=== PATIENT | male | born 1950 | race Caucasian/White ===

== ENCOUNTER → 2017-07-24 | Outpatient (CLI) | payer BC ==
--- NOTE | 2017-07-24 10:07 | PCVCIMAG ---
EXAM: ARTERIAL DUPLEX RIGHT UPPER EXTREMITY INDICATION: Decreased pulses right arm. Arm discomfort. FINDINGS: Right arm: Normal triphasic waveforms in the innominate artery, subclavian artery, brachial artery, radial artery, and ulnar artery. No evidence of flow-limiting stenosis identified in the right arm. Note is made systolic blood pressure is 22 mmHg less in the right arm compared to the left arm. Please correlate clinically. IMPRESSION: No evidence of flow-limiting arterial stenosis in the right upper extremity is identified. LOC:[id number]
--- NOTE | 2017-07-24 12:25 | PCVCIMAG ---
APPROVED REPORT Laterality: Bilateral Patient Location: Out-Patient Indications Stenosis Risk Factors Hypertension: Hyperlipidemia Doppler Spectral Velocity Analysis PSV / EDVPSV / EDV ECA (R) 116 / 13 cm/sECA (L) 95 / 11 cm/s dICA (R) 73 / 29 cm/sdICA (L) 47 / 17 cm/s Lilliana (R) 84 / 29 cm/smICA (L) 68 / 26 cm/s pICA (R) 60 / 22 cm/spICA (L) 59 / 19 cm/s Bulb (R) 56 / 13 cm/sBulb (L) 36 / 15 cm/s dCCA (R) 59 / 12 cm/sdCCA (L) 82 / 24 cm/s mCCA (R) 74 / 16 cm/smCCA (L) 91 / 19 cm/s Vert (R) 30 / 6 cm/sVert (L) 42 / 14 cm/s ICA/CCA 0.83 ICA/CCA 1.13 Basic Measurements Blood Pressure: Pulses: Right Left RightLeft Brachial(Sitting) 120/21zlDi353/76mmHgTemporal Real Time B-Mode Imaging Vert. (R)AntegradeVert. (L)Antegrade Findings The right carotid bulb has moderate calcified plaque. The right proximal internal carotid artery shows <40% stenosis. The right common carotid artery shows no significant stenosis. The right external carotid artery shows no significant stenosis. The left carotid bulb has mild plaque. The left proximal internal carotid artery shows no significant stenosis. The left common carotid artery shows no significant stenosis. The left external carotid artery shows no significant stenosis. Conclusion 1. Right internal carotid artery stenosis (<40%) 2. Left internal carotid artery plaquing 3. Antegrade vertebral flow
--- NOTE | 2017-07-24 12:29 | PCVCIMAG ---
APPROVED REPORT Patient Location: Echo lab Room #: Stress Nurse: Susan Curry RN TREADMILL STRESS TEST; INDICATIONS; CAD, CABG, HYPERTENSION, DIABETES, HYPERLIPIDEMIA. THE PATIENT EXERCISED ACCORDING TO THE ALISHA PROTOCOL FOR 7:28 MINS ACHIEVING A WORK LEVEL OF MAX METS 10.10. THE RESTING HEART RATE OF 74 BPM LEAH TO A MAXIMAL HEART RATE OF 148 BPM. THIS VALUE REPRESENTS 96% OF THE MAXIMAL AGE PREDICTED HEART RATE; THE RESTING BLOOD PRESSURE OF 160/80mmhg. LEAH TO A MAXIMUM BLOOD PRESSURE OF 200/84mmhg. THE EXERCISE TEST WAS STOPPED DUE TO MAXIMAL EFFORT. ECG: NORMAL SINUS, NORMAL TRACING. STRESS ECG: NO DIAGNOSTIC ISCHEMIC ELECTROCARDIOGRAPHIC CHANGES. RARE, ISOLATED PVC'S Conclusion 1. MAXIMAL TREADMILL STRESS NEGATIVE FOR ISCHEMIA 2. NO SUBJECTIVE SIGNS OF ISCHEMIA, NO DIAGNOSTIC ISCHEMIC ELECTROCARDIOGRAPHIC CHANGES 3. THE STUDY WAS ASSOCIATED WITH GOOD EXERCISE CAPACITY
== END | disposition home or self-care (01) ==
LOC: PCVCIMAG 08:41
PROVIDERS: ATTEND Internal Medicine
DX: I25.10 Atherosclerotic heart disease of native coronary artery without angina pectoris (principal); I10 Essential (primary) hypertension; I65.23 Occlusion and stenosis of bilateral carotid arteries; E78.5 Hyperlipidemia, unspecified; E11.9 Type 2 diabetes mellitus without complications; Z95.1 Presence of aortocoronary bypass graft; Z87.891 Personal history of nicotine dependence; Z79.82 Long term (current) use of aspirin; Z79.899 Other long term (current) drug therapy
CPT/HCPCS: 80061; 93005; 93017; 93880; 93931; G0463

== ENCOUNTER → 2018-07-23 | Outpatient (CLI) | payer BC ==
--- NOTE | 2018-07-23 09:54 | PCVCIMAG ---
APPROVED REPORT Indications Stenosis Risk Factors Hypertension: Hyperlipidemia Diabetes CAD, Doppler Spectral Velocity Analysis PSV / EDVPSV / EDV ECA (R) 100 / 9 cm/sECA (L) 78 / 10 cm/s dICA (R) 83 / 33 cm/sdICA (L) 55 / 26 cm/s Lilliana (R) 52 / 21 cm/smICA (L) 82 / 34 cm/s pICA (R) 60 / 22 cm/spICA (L) 62 / 22 cm/s Bulb (R) 60 / 14 cm/sBulb (L) 49 / 12 cm/s dCCA (R) 66 / 13 cm/sdCCA (L) 63 / 19 cm/s mCCA (R) 81 / 14 cm/smCCA (L) 92 / 23 cm/s Vert (R) 38 / 8 cm/sVert (L) 43 / 17 cm/s ICA/CCA 1.02ICA/CCA 0.89 Basic Measurements Blood Pressure: Pulses: Right Left RightLeft Brachial(Sitting) 138/44fuJh292/84mmHgTemporal Real Time B-Mode Imaging Vert. (R)AntegradeVert. (L)Antegrade Findings The right carotid bulb has mild calcified plaque. The right proximal internal carotid artery shows <40% stenosis. The right common carotid artery shows no significant stenosis. The right external carotid artery shows no significant stenosis. The left carotid bulb has mild calcified plaque. The left proximal internal carotid artery shows <40% stenosis. The left common carotid artery shows no significant stenosis. The left external carotid artery shows no significant stenosis. Conclusion 1. Right internal carotid artery stenosis (<40%) 2. Left internal carotid artery stenosis (<40%) 3. Antegrade vertebral flow
--- NOTE | 2018-07-23 11:00 | PCVCIMAG ---
APPROVED REPORT Study performed: 07/23/2018 09:40:16 Exam: Stress Echocardiogram Indication: CAD s/p CABG, Hyperlipidemia, Hypertension Stress Nurse: Adelaide Salazar RN Status: routine Ht: 6 ft 2 in HR: 73 bpm BP: 138/84 mmHg Rhythm: NSR Medical History Medical History: Diabetes Procedure The patient underwent an Exercise Stress Test using the Joshua Protocol. Blood pressure, heart rate, and EKG were monitored. An Echocardiogram was performed by respiratory care technician in four stages in quad fashion. At peak stress, four selected images were obtained and placed side by side with resting images for comparison. Stress Test Details Stress Test: Exercise stress testing was performed using a Joshua protocol. HR Resting HR: 73 bpmMax Heart Rate (APMHR): 153 bpm Max HR Achieved: 146 bpmTarget HR (85% APMHR): 130 bpm % of APMHR: 95 Recovery HR: 89 bpm HR response to stress: Normal HR response to stress BP Resting BP: 138/84 mmHg Max BP: 184/80 mmHg Recovery BP: 142/72 mmHg BP response to stress: Normal blood pressure response to stress. ECG Resting ECG: Sinus Rhythm Stress ECG: Sinus Rhythm ST Change: Normal Maximum ST Deviation: 0 mm Arrhythmia: None Recovery ECG: Sinus Rhythm Recovery ST Change: Normal Recovery ST Deviation: 0 mm Recovery Arrhythmia: None Clinical Reason for Termination: Maximal effort Exercise duration: 7 min 31 sec Highest Stage Achieved: Stage 3: 3.4 mph at 14% grade. Exercise capacity: 10.10 METs Overall Exercise Capacity for Age: Normal Angina Score: None Stress ECG Conclusion ECG: Non-ischemic Clinical: Non-ischemic Jaime Treadmill Score is 7.0 which is Low risk. Pre-Stress Echo The resting Echocardiogram showed normal left ventricular contractility with an estimated Ejection Fraction of about >55%. Normal wall motion in all segments on baseline images. Post-Stress Echo The stress Echocardiogram showed normal left ventricular contractility with an estimated Ejection Fraction of about 60-65%. Normal augmentation of wall motion in all segments on post stress images. Clinical No clinical or ECG evidence for ischemia. Conclusion Clinical Response: Non-ischemic Exercise Capacity: Average Stress ECG Response: Non-ischemic Stress Echo Images: Non-ischemic The left ventricle is normal in size and wall thickness in both the rest and stress images. Normal stress echocardiogram with maximal exercise stress. Other Information Study Quality: Adequate <Conclusion> The left ventricle is normal in size and wall thickness in both the rest and stress images. Normal stress echocardiogram with maximal exercise stress.
== END | disposition home or self-care (01) ==
LOC: PCVCIMAG 09:08
PROVIDERS: ATTEND Internal Medicine
DX: I65.23 Occlusion and stenosis of bilateral carotid arteries (principal); E11.9 Type 2 diabetes mellitus without complications; I10 Essential (primary) hypertension; E78.5 Hyperlipidemia, unspecified; Z95.1 Presence of aortocoronary bypass graft
CPT/HCPCS: 93325; 93351; 93880